=== PATIENT | male | born 1970 | race Caucasian/White ===

== ENCOUNTER 2018-01-22 07:05 | Emergency (ER) | payer BC ==
[2018-01-22 07:13] VITALS: PULSE 80; TEMP 97.8; BMI 28.5
[2018-01-22] MEDS ORDERED: KETOROLAC TROMETHAMINE 30 MG/1 ML VIAL IM ONE (07:16)
--- NOTE | 2018-01-22 07:26 | PDOC ---
History of Present Illness - General Chief Complaint: Toothache Stated Complaint: tooth pain Time Seen by Provider: 01/22/18 07:13 - History of Present Illness Initial Comments: 01/22/18 07:17 47 M with no PMH presents to ED with tooth 8 pain. Pt states that he had a previous root canal several years ago in the same tooth. 2 days ago he began to notice pain. He called his dentist, who told him to take some of the old Clindamycin he had at home. He states he has been taking it for 2 days but has not noticed any improvement in the pain. He now feels the pain extending from the tooth into his gum. Denies any pus or bleeding. Denies F/C. Denies pain in his sinuses. Past History - Past Medical History Allergies/Adverse Reactions: Allergies Allergy/AdvReac Type Severity Reaction Status Date / Time No Known Allergies Allergy Verified 01/22/18 07:06 Home Medications: Ambulatory Orders Allopurinol 300 mg PO DAILY 01/22/18 Amoxicillin/Potassium Clav [Augmentin 875-125 Tablet] 1 each PO BID #14 tablet 01/22/18 Oxycodone HCl/Acetaminophen [Percocet 5-325 mg Tablet] 1 tab PO Q6H #8 tablet MDD 4 tabs 01/22/18 CVA: No COPD: No Disorders: Yes (RENAL COLIC) - Immunization History Td Vaccination: No TDAP Vaccination: No Immunization Up to Date: Yes - Suicide/Smoking/Psychosocial Hx Smoking Status: No Smoking History: Unknown if ever smoked Have you smoked in the past 12 months: No Number of Cigarettes Smoked Daily: 0 Information on smoking cessation initiated: No Hx Alcohol Use: No Drug/Substance Use Hx: No Substance Use Type: None Review of Systems - Review of Systems Comments:: 01/22/18 07:26 "GENERAL/CONSTITUTIONAL: No fever or chills. No weakness. HEAD, EYES, EARS, NOSE AND THROAT: + tooth pain. No change in vision. No ear pain or discharge. No sore throat. CARDIOVASCULAR: No chest pain or shortness of breath. RESPIRATORY: No cough, wheezing, or hemoptysis. GASTROINTESTINAL: No nausea, vomiting, diarrhea or constipation. GENITOURINARY: No dysuria, frequency, or change in urination. MUSCULOSKELETAL: No joint or muscle swelling or pain. No neck or back pain. SKIN: No rash NEUROLOGIC: No headache, vertigo, loss of consciousness, or change in strength/ sensation. ENDOCRINE: No increased thirst. No abnormal weight change. HEMATOLOGIC/LYMPHATIC: No anemia, easy bleeding, or history of blood clots. ALLERGIC/IMMUNOLOGIC: No hives or skin allergy. " *Physical Exam - Vital Signs Last Vital Signs Temp Pulse Resp BP Pulse Ox 97.8 F 80 18 134/101 100 01/22/18 07:06 01/22/18 07:06 01/22/18 07:06 01/22/18 07:06 01/22/18 07:06 - Physical Exam Comments: 01/22/18 07:27 "GENERAL: Awake, alert, and fully oriented, in no acute distress. HEAD: No signs of trauma EYES: PERRLA, EOMI, sclera anicteric, conjunctiva clear ENT: + mild tenderness and erythema to gum above tooth 8, no abscess, no fluctuance. Auricles normal inspection, hearing grossly normal, nares patent, oropharynx clear without exudates. Moist mucosa. No sinus tenderness NECK: Nontender, no stepoffs, Normal ROM, supple, no lymphadenopathy, JVD, or masses LUNGS: Breath sounds equal, clear to auscultation bilaterally. No wheezes, and no crackles HEART: Regular rate and rhythm, normal S1 and S2, no murmurs, rubs or gallops ABDOMEN: Soft, nontender, normoactive bowel sounds. No guarding, no rebound. No masses EXTREMITIES: Normal range of motion, no edema. No clubbing or cyanosis. No cords, erythema, or tenderness NEUROLOGICAL: Cranial nerves II through XII intact. 5/5 strength and sensation in all extremities, Normal speech, normal gait, normal cerebellar function SKIN: Warm, Dry, normal turgor, no rashes or lesions noted. " Medical Decision Making - Medical Decision Making 01/22/18 07:27 47 M with tooth pain, found to have mild pain and erythema above tooth 8. Pulpitis vs gingivitis. No evidence of periapical abscess. Will switch from clinda to augmentin. - NSAIDs - Augmentin - f/u dentist Pt is well appearing, with normal vitals. Clinically stable for DC at this time. I discussed the physical exam findings, ancillary test results and final diagnoses with the patient. I answered all of the patient's questions. The patient was satisfied with the care received and felt comfortable with the discharge plan and treatment plan. The patient agrees to follow up with the primary care physician within 24-72 hours. *DC/Admit/Observation/Transfer Diagnosis at time of Disposition: Tooth pain - Discharge Dispostion Disposition: HOME Condition at time of disposition: Stable - Prescriptions Prescriptions: Amoxicillin/Potassium Clav [Augmentin 875-125 Tablet] 1 each PO BID #14 tablet Oxycodone HCl/Acetaminophen [Percocet 5-325 mg Tablet] 1 tab PO Q6H #8 tablet MDD 4 tabs - Referrals - Patient Instructions Printed Discharge Instructions: DI for Dental Pain Additional Instructions: Take the augmentin instead of the clindamycin. Take ibuprofen 600mg every 4-6 hours as needed for pain. For severe pain, take one percocet every 8 hours as needed only. If you experience worsening pain, swelling, pus or bleeding, fevers, or any other concerning symptoms, return to the ER immediately Otherwise, see your dentist within 72 hours. - Post Discharge Activity - Attestations Physician Attestion: 01/22/18 07:31 I, Dr. Nathen Fine MD, attest that this document has been prepared under my direction and personally reviewed by me in its entirety. I further attest, that it accurately reflects all work, treatment, procedures and medical decision -making performed by me.
[2018-01-22] MEDS ORDERED: AMOX TR/POT CLAV 875MG/125MG TABLETS (FP) PO ONE (07:30)
[2018-01-22] MEDS ORDERED: AMOX TR/POT CLAV 875MG/125MG TABLETS (FP) ONE (07:30)
[2018-01-22 07:33] VITALS: BP 139/99
== END 2018-01-22 07:35 | disposition home or self-care (01) ==
LOC: FER 07:05
DX: K08.89 Other specified disorders of teeth and supporting structures (principal)
CPT/HCPCS: 99282-25